=== PATIENT | female | born 2000 | race Two or more races ===

== ENCOUNTER 2019-10-12 09:37 | Emergency (ER) | payer OTHER ==
--- NOTE | 2019-10-12 11:32 | ER Document Report ---
ED Medical Screen (RME) - General Chief Complaint: Nausea/Vomiting Stated Complaint: NAUSEA/VOMITING/HEARING PROBLEMS Time Seen by Provider: 10/12/19 11:24 Notes: Patient is a 19-year-old female presents emergency department with a chief complaint of difficulty hearing and nausea. Patient reports over the past few months she has had difficulty hearing out of both ears worse on the left. Patient reports 2 weeks ago she was also having burning with urination. Patient reports she is sexually active and there is a concern for possible STD exposure she has not been checked. Patient denies vaginal bleeding or discharge. Patient denies cough. Patient reports she has had nausea for the past 2 to 3 weeks and vomits about 2-3 times per week. Patient reports last night she vomited and noticed some dark blood within her vomitus. Patient reports she has very regular menstrual cycles with her last one being in January. Patient reports yesterday she did take a test which was negative at home. Patient's not on control. TRAVEL OUTSIDE OF THE [place] IN LAST 30 DAYS: No - Related Data Allergies/Adverse Reactions: amoxicillin Allergy (Verified 10/12/19 11:22) Past Medical History - Social History Chew tobacco use (# tins/day): No Frequency of alcohol use: Social Drug Abuse: None Physical Exam - Vital signs Vitals: Temp Pulse Resp BP Pulse Ox 98 F 75 18 120/67 99 10/12/19 10:17 10/12/19 10:17 10/12/19 10:17 10/12/19 10:17 10/12/19 10:17 Course - Re-evaluation Re-evalutation: 10/12/19 11:32 We will obtain basic labs, added on a urine hCG, urinalysis and urine gonorrhea chlamydia. I did inform the patient we do not get the gonorrhea chlamydia results back while she is here in the emergency department typically but we can prophylactically treat her if wanted. Patient states she would like to be contacted if they are positive and does not want to be prophylactically treated. I have greeted and performed a rapid initial assessment of this patient. A comprehensive ED assessment and evaluation of the patient, analysis of test results and completion of the medical decision making process will be conducted by additional ED providers. - Vital Signs Vital signs: Temp Pulse Resp BP Pulse Ox 98 F 75 18 120/67 99 10/12/19 10:17 10/12/19 10:17 10/12/19 10:17 10/12/19 10:17 10/12/19 10:17
[2019-10-12 12:04] LABS: ABSOLUTE BASOPHILS # (AUTO) 0.1 10^3/uL (0.0-0.2); ABSOLUTE EOSINOPHILS # (AUTO) 0.4 10^3/uL (0.0-0.6); ABSOLUTE MONOCYTES (AUTO) 0.7 10^3/uL (0.1-1.4); EOSINOPHILS % (AUTO) 3.6 % (0-6); HEMATOCRIT 35.3 % (36.0-47.0); HEMOGLOBIN 11.7 g/dL (12.0-15.5); MEAN CORPUSCULAR HEMOGLOBIN 25.4 pg (27.0-33.4); MEAN CORPUSCULAR HGB CONC 33.1 g/dL (32.0-36.0); MEAN CORPUSCULAR VOLUME 77 fl (80-97); MONOCYTES % (AUTO) 6.6 % (3-13); PLATELET COUNT 475 10^3/uL (150-450); RED CELL DISTRIBUTION WIDTH 18.1 % (11.5-14.0); SEGMENTED NEUTROPHILS % (AUTO) 58.8 % (42-78); TOTAL CELLS COUNTED % (AUTO) 100 %; WHITE BLOOD COUNT 10.1 10^3/uL (4.0-10.5)
[2019-10-12 12:09] LABS: APPEARANCE,URINE SLIGHTLY-CLOUDY; BILIRUBIN,URINE NEGATIVE (NEGATIVE); CALCIUM OXALATE CRYSTALS,URINE TOO NUMEROUS TO CNT /HPF; COLOR,URINE YELLOW; GLUCOSE, URINE NEGATIVE (NEGATIVE); KETONES,URINE NEGATIVE (NEGATIVE); LEUKOCYTE ESTERASE,URINE TRACE (NEGATIVE); NITRITE,URINE NEGATIVE (NEGATIVE); PROTEIN,URINE 30 mg/dL (NEGATIVE); URINE SPECIFIC GRAVITY 1.025; UROBILINOGEN,URINE NEGATIVE mg/dL (<2.0)
[2019-10-12 12:28] LABS: ALBUMIN 4.4 g/dL (3.5-5.0); ALKALINE PHOSPHATASE 111 U/L (38-126); ANION GAP 11 (5-19); ASPARTATE AMINO TRANSFERASE 70 U/L (14-36); BILIRUBIN,DIRECT 0.3 mg/dL (0.0-0.4); BILIRUBIN,TOTAL 0.4 mg/dL (0.2-1.3); BLOOD UREA NITROGEN 9 mg/dL (7-20); CALCIUM 9.1 mg/dL (8.4-10.2); CARBON DIOXIDE 25 mmol/L (22-30); CHLORIDE 103 mmol/L (98-107); GLUCOSE 89 mg/dL (75-110); TOTAL PROTEIN 9.1 g/dL (6.3-8.2)
--- NOTE | 2019-10-12 13:24 | ER Document Report ---
ED General - General Chief Complaint: Nausea/Vomiting Stated Complaint: NAUSEA/VOMITING/HEARING PROBLEMS Time Seen by Provider: 10/12/19 11:24 TRAVEL OUTSIDE OF THE [place] IN LAST 30 DAYS: No - HPI Notes: 19-year-old female with no primary care physician presenting to the emergency department today with multiple concerns. Patient is sexually active and not on any type of contraception. She says she has not had a menstrual cycle since January. She is taken negative tests at home and comes in today specifically requesting we perform a test for her. Patient reports intermittent nausea and vomiting. She is lost about 5 pounds recently. She denies fever chills. She denies any known history of viral hepatitis. She is not on any prescription medications. She indicates occasiona l social consumption of alcohol. Patient denies any hospitalizations, surgery or serious illnesses. - Related Data Allergies/Adverse Reactions: amoxicillin Allergy (Verified 10/12/19 11:22) Past Medical History - General Information source: Patient - Social History Smoking Status: Never Smoker Chew tobacco use (# tins/day): No Frequency of alcohol use: Social Drug Abuse: None Occupation: Patient works in a [employer] Family History: Reviewed & Not Pertinent Patient has suicidal ideation: No Patient has homicidal ideation: No Review of Systems - Review of Systems Notes: Constitutional: Negative for fever. HENT: Negative for sore throat. Eyes: Negative for visual changes. Cardiovascular: Negative for chest pain. Respiratory: Negative for shortness of breath. Gastrointestinal: As per HPI. Genitourinary: Negative for dysuria. Musculoskeletal: Negative for back pain. Skin: Negative for rash. Neurological: Negative for headaches, weakness or numbness. 10 point ROS negative except as marked above and in HPI. Physical Exam - Vital signs Vitals: Temp Pulse Resp BP Pulse Ox 98 F 75 18 120/67 99 10/12/19 10:10/12/19 10:17 10/12/19 10:10/12/19 10:10/12/19 10:17 - Notes Notes: GENERAL: Moderately obese female of approximately stated age appearing in no acute distress. SKIN: Good turgor no rashes. HEAD: Normocephalic atraumatic. EYES: PERRLA. EOMI. Conjunctivae and sclerae clear. EARS: CANALS AND TMS CLEAR. NOSE: CLEAR. MOUTH: Moist mucosa. Good dentition. No stridor or edema. No drooling. NECK: Supple. No masses or thyromegaly. No adenopathy. Carotids 2+ without bruits. No JVD. BACK: Symmetrical without tenderness. CHEST: Respirations unlabored. Breath sounds clear and symmetrical. HEART: Regular rhythm. No murmur gallop or rub. ABDOMEN: Moderately obese. Soft nontender without masses, organomegaly or rebound. Bowel sounds normally active. No bruits. GENITALIA: Deferred. EXTREMITIES: No edema. No calf tenderness. Cap refill less than 1.5 seconds. Dorsalis pedis and posterior tibial pulses 3+ and symmetrical. NEUROLOGICAL: GCS 15. Alert and oriented x3. Normal gait. Fluent speech. Cranial nerves II through XII intact. Sensorimotor and cerebellar normal. Normal tone. PSYCHIATRIC: Appropriate affect. Course - Re-evaluation Re-evalutation: 10/12/19 13:21 test and urinalysis unremarkable. STD screens requested by the patient remain pending. She is got some mild transaminase elevation which is probably due to fatty infiltration. Her abdomen is soft and nontender. I think she probably needs to be seen for establishment of care with a primary care physician on outpatient basis and they may wish to consider an elective ultrasound of the liver and gallbladder. - Vital Signs Vital signs: Temp Pulse Resp BP Pulse Ox 98 F 75 18 120/67 99 10/12/19 10:17 10/12/19 10:17 10/12/19 10:17 10/12/19 10:17 10/12/19 10:17 - Laboratory Result Diagrams: 10/12/19 11:35 10/12/19 11:35 Laboratory results interpreted by me: 10/12/19 10/12/19 10/12/19 11:35 11:35 11:35 Hgb 11.7 L Hct 35.3 L MCV 77 L MCH 25.4 L RDW 18.1 H Plt Count 475 H AST 70 H Total Protein 9.1 H Urine Protein 30 H Ur Leukocyte Esterase TRACE H Urine Ascorbic Acid 40 H Discharge - Discharge Clinical Impression: Nausea vomiting Condition: Stable Disposition: HOME, SELF-CARE Additional Instructions: Follow-up regarding abnormal liver function testing with primary physician. They may wish to obtain an ultrasound study for you as an outpatient. Return here as needed for new or worsening symptoms. Prescriptions: Ondansetron [Zofran Odt 4 mg Tablet] 1 - 2 tab PO Q4H PRN #15 tab.rapdis PRN Reason: For Nausea/Vomiting Referrals: [facility] [Provider Group] - Follow up as needed
[2019-10-12 13:37] VITALS: BP 128/74
[2019-10-12 13:37] LABS: CHLAM PCR DETECTED (NOT DETECT)
== END 2019-10-12 13:38 | disposition home or self-care (01) ==
LOC: ER 09:37
DX: R11.2 Nausea with vomiting, unspecified (principal); Z88.0 Allergy status to penicillin
CPT/HCPCS: 36415; 80053; 81001; 81025; 85025; 87491; 87591

== ENCOUNTER 2019-11-14 12:02 | Emergency (ER) | payer OTHER ==
--- NOTE | 2019-11-14 13:30 | ER Document Report ---
ED Medical Screen (RME) - General Chief Complaint: Chest Pressure Stated Complaint: COUGH/NAUSEA/CONGESTION Time Seen by Provider: 11/14/19 13:09 Mode of Arrival: Ambulatory Information source: Patient Notes: Patient is an otherwise healthy 19-year-old female presenting to the emergency department cough, congestion, chest pain. Patient reports chest pain radiates up into her bilateral shoulders and feels like a pressure. Patient denies any cardiac history. Lung sounds clear and equal bilaterally. Heart sounds S1-S2 present, normal rate, normal rhythm. I have greeted and performed a rapid initial assessment of this patient. A comprehensive ED assessment and evaluation of the patient, analysis of test results and completion of the medical decision making process will be conducted by additional ED providers. I have specifically instructed the patient or family members with the patient to immediately return to any nursing staff should anything change in the patient's condition or with their chief complaint. TRAVEL OUTSIDE OF THE [place] IN LAST 30 DAYS: No - Related Data Allergies/Adverse Reactions: amoxicillin Allergy (Verified 11/14/19 13:01) Past Medical History - Social History Chew tobacco use (# tins/day): No Frequency of alcohol use: Social Drug Abuse: None Physical Exam - Vital signs Vitals: Temp Pulse Resp BP Pulse Ox 98.3 F 50 L 18 130/82 H 98 11/14/19 13:16 11/14/19 13:16 11/14/19 13:16 11/14/19 13:16 11/14/19 13:16 Course - Vital Signs Vital signs: Temp Pulse Resp BP Pulse Ox 98.3 F 50 L 18 130/82 H 98 11/14/19 13:16 11/14/19 13:16 11/14/19 13:16 11/14/19 13:16 11/14/19 13:16
[2019-11-14 14:08] LABS: A TYPE INFLUENZA AG NEGATIVE (NEGATIVE); B INFLUENZA AG NEGATIVE (NEGATIVE)
--- NOTE | 2019-11-14 14:11 | RADIOLOGY REPORT (SQ) ---
EXAM DESCRIPTION: CHEST 2 VIEWS COMPLETED DATE/TIME: 11/14/2019 1:48 pm REASON FOR STUDY: chest pain COMPARISON: 11/14/2019 EXAM PARAMETERS: NUMBER OF VIEWS: two views TECHNIQUE: Digital Frontal and Lateral radiographic views of the chest acquired. RADIATION DOSE: NA LIMITATIONS: none FINDINGS: LUNGS AND PLEURA: No opacities, masses or pneumothorax. No pleural effusion. MEDIASTINUM AND HILAR STRUCTURES: No masses or contour abnormalities. HEART AND VASCULAR STRUCTURES: Heart normal size. No evidence for failure. BONES: No acute findings. HARDWARE: None in the chest. OTHER: No other significant finding. IMPRESSION: NO ACUTE RADIOGRAPHIC FINDING IN THE CHEST. TECHNICAL DOCUMENTATION: JOB ID: [id number] 2010 [employer]- All Rights Reserved Reading location - IP/workstation name: [email or web address]
[2019-11-14] MEDS ORDERED: ONDANSETRON 4 MG TAB.RAPDIS PO ONE (14:28)
--- NOTE | 2019-11-14 14:32 | ER Document Report ---
ED Respiratory Problem - General Chief Complaint: Chest Pressure Stated Complaint: COUGH/NAUSEA/CONGESTION Time Seen by Provider: 11/14/19 13:09 Mode of Arrival: Ambulatory Notes: HPI: 19-year-old female with the onset 1 2 to 3 days ago of some runny nose, congestion, and cough. She denies any fevers. She states she has had some intermittent bouts of vomiting and diarrhea. She denies any abdominal discomfort or blood in the vomit or diarrhea. No calf pain or leg swelling. No recent trips or travel. ROS: See HPI All other review of systems reviewed and otherwise negative Reviewed vital signs and nursing note as charted by RN. PHYSICAL EXAM: CONSTITUTIONAL: Alert and oriented and responds appropriately to questions. Well-appearing; well-nourished HEAD: Normocephalic; atraumatic EYES: PERRL; Conjunctivae clear, sclerae non-icteric ENT: Normal nose; bilateral nonpurulent nasal rhinorrhea; moist mucous membranes; pharynx without lesions noted NECK: Supple without meningismus; non-tender; no cervical lymphadenopathy, no masses CARD: Regular rate and rhythm; no murmurs; symmetric distal pulses RESP: Normal chest excursion without splinting or tachypnea; breath sounds clear and equal bilaterally; no wheezes, no rhonchi, no rales ABD/GI: Normal bowel sounds; non-distended; soft, non-tender; no palpable organomegaly or masses BACK: The back appears normal and is non-tender to palpation EXT: Normal ROM in all joints; non-tender to palpation; no edema SKIN: No acute lesions noted NEURO: CN 2-12 intact; 5/5 bilateral upper and lower extremity strength with sensation intact to light touch PSYCH: The patient's mood and manner are appropriate. Grooming and personal hygiene are appropriate. TRAVEL OUTSIDE OF THE [place] IN LAST 30 DAYS: No - Related Data Allergies/Adverse Reactions: amoxicillin Allergy (Verified 11/14/19 13:01) Past Medical History - General Information source: Patient - Social History Smoking Status: Current Every Day Smoker Chew tobacco use (# tins/day): No Frequency of alcohol use: Social Drug Abuse: None Family History: Reviewed & Not Pertinent Patient has suicidal ideation: No Patient has homicidal ideation: No Physical Exam - Vital signs Vitals: Temp Pulse Resp BP Pulse Ox 98.3 F 50 L 18 130/82 H 98 11/14/19 13:16 11/14/19 13:16 11/14/19 13:16 11/14/19 13:16 11/14/19 13:16 Course - Re-evaluation Re-evalutation: Given the above history and physical in triage and influenza, EKG, and an x-ray of the chest were ordered. Patient has had no vomiting today or here. She denies any nausea at this time. She has had no fevers. EKG shows heart rate of 53, normal sinus rhythm, normal axis, no ST elevation or depression. Given the above history and physical, I do believe the risk of ACS, PE, dissection to be extraordinarily low. 11/14/19 14:30 X-ray as recorded. Vital signs are stable. Patient will be discharged home with strict return precautions and follow-up with the primary care physician as needed. - Vital Signs Vital signs: Temp Pulse Resp BP Pulse Ox 98.3 F 50 L 18 130/82 H 98 11/14/19 13:16 11/14/19 13:16 11/14/19 13:16 11/14/19 13:16 11/14/19 13:16 Discharge - Discharge Clinical Impression: Nasal congestion, Cough, Vomiting and diarrhea Condition: Good Disposition: HOME, SELF-CARE Additional Instructions: Come back immediately for any worsening shortness of breath or difficulty breathing, worsening pain, leg swelling, persistent vomiting or diarrhea, abdominal pain, or any other acute problems. Prescriptions: Ondansetron [Zofran Odt 4 mg Tablet] 1 tab PO Q6H #15 tab.omaira
[2019-11-14 15:05] VITALS: BP 139/67
--- NOTE | 2019-11-14 15:38 | EKG REPORT ---
SEVERITY:- ABNORMAL ECG - SINUS RHYTHM CONSIDER LEFT VENTRICULAR HYPERTROPHY : Confirmed by: Qian Toscano MD 14-Nov-2019 15:37:27
== END 2019-11-14 15:04 | disposition home or self-care (01) ==
LOC: ER 12:02
DX: R09.81 Nasal congestion (principal); R05 Cough; R11.10 Vomiting, unspecified; R19.7 Diarrhea, unspecified; R07.9 Chest pain, unspecified; R09.89 Other specified symptoms and signs involving the circulatory and respiratory systems; F17.200 Nicotine dependence, unspecified, uncomplicated
CPT/HCPCS: 93005; 99284; 87804; 71046; 93010; S0119